=== PATIENT | male | born 1975 | race American Indian/Alaskan Native ===

== ENCOUNTER 2020-11-21 05:51 | Emergency (ER) | payer SELFPAY ==
[2020-11-21 06:12] VITALS: BP 117/79
[2020-11-21 07:15] LABS: Basophils # (Auto) 0.1 K/mm3 (0.0-0.1); Basophils % (Auto) 0.6 % (0.0-1.8); Eosinophils # (Auto) 0.1 K/mm3 (0.0-0.4); Eosinophils % (Auto) 1.1 % (0.0-4.3); Hematocrit 42.7 % (35.5-45.6); Hemoglobin 14.6 gm/dl (11.8-15.2); Lymphocytes # (Auto) 1.4 K/mm3 (1.2-5.4); Lymphocytes % (Auto) 14.3 % (13.4-35.0); Mean Corpuscular HGB Conc 34 % (32-34); Mean Corpuscular Volume 94 fl (84-94); Monocytes # (Auto) 0.7 K/mm3 (0.0-0.8); Monocytes % (Auto) 7.8 % (0.0-7.3); Platelet Count 217 K/mm3 (140-440); Red Blood Count 4.55 M/mm3 (3.65-5.03); Red Cell Distribution Width 14.5 % (13.2-15.2)
[2020-11-21 07:27] LABS: Alanine Aminotransferase 15 units/L (7-56); Albumin 4.4 g/dL (3.9-5); BUN/Creatinine Ratio 11; Blood Urea Nitrogen 9 mg/dL (9-20); Hemolysis Index 16
[2020-11-21 07:45] LABS: Bilirubin,Urine NEG (Negative); Blood,Urine NEG (Negative); Color,Urine Yellow (Yellow); Mucus,Urine 3+ /HPF
--- NOTE | 2020-11-21 08:01 | Emergency Department Report ---
ED Back Pain/Injury HPI - General Chief Complaint: Abdominal Pain Stated Complaint: LOWER BACK/ABD PAIN Time Seen by Provider: 11/21/20 07:26 Source: patient Limitations: No Limitations - History of Present Illness Initial Comments: The patient was evaluated in the emergency department for symptoms described in the history of present illness. He/she was evaluated in the context of the global COVID-19 pandemic, which necessitated consideration that the patient might be at risk for infection with the virus that causes COVID-19. Institutional protocols and algorithms that pertain to the evaluation of patients at risk for COVID-19 are in a state of rapid change based on inf ormation released by regulatory bodies including the CDC and federal and state organizations. These policies and algorithms were followed during the patient's care in the emergency department. Please note that these policies, procedures and recommendations changed on a rapid basis. 45-year-old -[place] male who is in no acute distress and nontoxic in appearance presents to the emergency room complaining of lower back pain for 2 weeks and lower abdominal pain for 3 days. Patient states that he has lower back pain that radiates down his legs and it feels like it is burning. Patient states it will go into his hips. Patient states what makes it worse is quick movements twisting and sitting for long period of time. He states nothing makes it better. Patient is taking nothing for his pain. Patient does not have a primary care provider. Patient denies any injury to his back. Patient states he has mild abdominal pain feels more like in his muscle 1 contractions abdomen muscles because his back tenses up. Patient denies any testicular pain or swelling no penile discharge. Patient denies any past medical history surgical history on her right shoulder and a hernia. Has no known drug allergies. MD Complaint: back pain - Related Data Previous Rx's Medication Instructions Recorded Last Taken Type Doxycycline Hyclate [Doxycycline 100 mg PO Q12HR 10 Days #20 tab 11/21/20 Unknown Rx Hyclate TAB] Ibuprofen [Motrin 600 MG tab] 600 mg PO Q8H PRN #21 tablet 11/21/20 Unknown Rx Allergies Allergy/AdvReac Type Severity Reaction Status Date / Time No Known Allergies Allergy Unverified 11/21/20 06:19 ED Review of Systems ROS: Stated complaint: LOWER BACK/ABD PAIN Other details as noted in HPI ED Past Medical Hx - Past Medical History Previous Medical History?: No - Surgical History Past Surgical History?: Yes Additional Surgical History: Hernia Repair. Right shoulder - Social History Smoking Status: Current Every Day Smoker Substance Use Type: None - Medications Home Medications: Home Medications Medication Instructions Recorded Confirmed Last Taken Type Doxycycline Hyclate [Doxycycline 100 mg PO Q12HR 10 Days #20 tab 11/21/20 Unknown Rx Hyclate TAB] Ibuprofen [Motrin 600 MG tab] 600 mg PO Q8H PRN #21 tablet 11/21/20 Unknown Rx ED Physical Exam - General Limitations: No Limitations General appearance: alert, in no apparent distress - Head Head exam: Present: atraumatic, normocephalic - Eye Eye exam: Present: normal appearance - ENT ENT exam: Present: mucous membranes moist, normal external ear exam - Neck Neck exam: Present: normal inspection, full ROM - Respiratory Respiratory exam: Absent: accessory muscle use - Cardiovascular Cardiovascular Exam: Present: regular rate - GI/Abdominal GI/Abdominal exam: Present: soft. Absent: distended, tenderness, guarding, rebound - Back Exam Back exam: Present: normal inspection - Expanded Back Exam Expanded Back exam: Sciatic Notch Tenderness: Left, Right, Positive Straight Leg Raise: Left, Right - Neurological Exam Neurological exam: Present: alert, oriented X3, normal gait - Psychiatric Psychiatric exam: Present: normal affect, normal mood - Skin Skin exam: Present: warm, dry, intact, normal color. Absent: rash ED Course Vital Signs 11/21/20 06:06 Temperature 98.0 F Pulse Rate 89 Respiratory 18 Rate Blood Pressure 117/79 O2 Sat by Pulse 95 Oximetry ED Medical Decision Making - Lab Data Result diagrams: 11/21/20 06:40 11/21/20 06:40 Laboratory Last Values WBC 9.6 K/mm3 (4.5-11.0) 11/21/20 06:40 RBC 4.55 M/mm3 (3.65-5.03) 11/21/20 06:40 Hgb 14.6 gm/dl (11.8-15.2) 11/21/20 06:40 Hct 42.7 % (35.5-45.6) 11/21/20 06:40 MCV 94 fl (84-94) 11/21/20 06:40 MCH 32 pg (28-32) 11/21/20 06:40 MCHC 34 % (32-34) 11/21/20 06:40 RDW 14.5 % (13.2-15.2) 11/21/20 06:40 Plt Count 217 K/mm3 (140-440) 11/21/20 06:40 Lymph % (Auto) 14.3 % (13.4-35.0) 11/21/20 06:40 [place] % (Auto) 7.8 % (0.0-7.3) H 11/21/20 06:40 Eos % (Auto) 1.1 % (0.0-4.3) 11/21/20 06:40 Baso % (Auto) 0.6 % (0.0-1.8) 11/21/20 06:40 Lymph # (Auto) 1.4 K/mm3 (1.2-5.4) 11/21/20 06:40 [place] # (Auto) 0.7 K/mm3 (0.0-0.8) 11/21/20 06:40 Eos # (Auto) 0.1 K/mm3 (0.0-0.4) 11/21/20 06:40 Baso # (Auto) 0.1 K/mm3 (0.0-0.1) 11/21/20 06:40 Seg Neutrophils % 76.2 % (40.0-70.0) H 11/21/20 06:40 Seg Neutrophils # 7.3 K/mm3 (1.8-7.7) 11/21/20 06:40 Sodium 139 mmol/L (137-145) 11/21/20 06:40 Potassium 4.6 mmol/L (3.6-5.0) 11/21/20 06:40 Chloride 103.0 mmol/L (98-107) 11/21/20 06:40 Carbon Dioxide 33 mmol/L (22-30) H 11/21/20 06:40 Anion Gap 8 mmol/L 11/21/20 06:40 BUN 9 mg/dL (9-20) 11/21/20 06:40 Creatinine 0.8 mg/dL (0.8-1.3) 11/21/20 06:40 Estimated GFR > 60 ml/min 11/21/20 06:40 BUN/Creatinine Ratio 11 % 11/21/20 06:40 Glucose 143 mg/dL (75-100) H 11/21/20 06:40 Calcium 9.0 mg/dL (8.4-10.2) 11/21/20 06:40 Total Bilirubin 0.40 mg/dL (0.1-1.2) 11/21/20 06:40 AST 17 units/L (5-40) 11/21/20 06:40 ALT 15 units/L (7-56) 11/21/20 06:40 Alkaline Phosphatase 55 units/L (35-129) 11/21/20 06:40 Total Protein 7.4 g/dL (6.3-8.2) 11/21/20 06:40 Albumin 4.4 g/dL (3.9-5) 11/21/20 06:40 Albumin/Globulin Ratio 1.5 % 11/21/20 06:40 Urine Color Yellow (Yellow) 11/21/20 Unknown Urine Turbidity Clear (Clear) 11/21/20 Unknown Urine pH 7.0 (5.0-7.0) 11/21/20 Unknown Ur Specific [place] 1.026 (1.003-1.030) 11/21/20 Unknown Urine Protein 30 mg/dl mg/dL (Negative) 11/21/20 Unknown Urine Glucose (UA) Neg mg/dL (Negative) 11/21/20 Unknown Urine Ketones Neg mg/dL (Negative) 11/21/20 Unknown Urine Blood Neg (Negative) 11/21/20 Unknown Urine Nitrite Neg (Negative) 11/21/20 Unknown Urine Bilirubin Neg (Negative) 11/21/20 Unknown Urine Urobilinogen 2.0 mg/dL (<2.0) 11/21/20 Unknown Ur Leukocyte Esterase Neg (Negative) 11/21/20 Unknown Urine WBC (Auto) 28.0 /HPF (0.0-6.0) H 11/21/20 Unknown Urine RBC (Auto) 19.0 /HPF (0.0-6.0) 11/21/20 Unknown U Epithel Cells (Auto) 1.0 /HPF (0-13.0) 11/21/20 Unknown Urine Mucus 3+ /HPF 11/21/20 Unknown - Medical Decision Making 45-year-old -[place] male who is in no acute distress and nontoxic in appearance presents to the emergency room complaining of lower back pain for 2 weeks and lower abdominal pain for 3 days. Patient states that he has lower back pain that radiates down his legs and it feels like it is burning. Patient states it will go into his hips. Patient states what makes it worse is quick movements twisting and sitting for long period of time. He states nothing makes it better. Patient is taking nothing for his pain. Patient does not have a primary care provider. Patient denies any injury to his back. Patient states he has mild abdominal pain feels more like in his muscle 1 contractions abdomen muscles because his back tenses up. Patient denies any testicular pain or swelling no penile discharge. Patient denies any past medical history surgical history on her right shoulder and a hernia. Has no known drug allergies. CBC CMP and urinalysis. CBC CMP is within normal limits urinalysis is pending. Patient is compliant and physical examination is more indicative of sciatica pain or lower back pain with with radiculopathy. Discussed with patient negative treatment for this is ibuprofen naproxen which is nonsteroidal anti- inflammatory medications and stretches. Urinalysis is positive for urinary tract infection we will place patient on doxycycline 100 mg p.o. twice daily for 10 days. Instructed patient to follow-up with a primary care provider. Critical care attestation.: If time is entered above; I have spent that time in minutes in the direct care of this critically ill patient, excluding procedure time. ED Disposition Clinical Impression: Back pain with radiculopathy, UTI (urinary tract infection) Disposition: 01 HOME / SELF CARE / HOMELESS Is pt being admited?: No Does the pt Need Aspirin: No Condition: Stable Instructions: Urinary Tract Infection, Adult, Radicular Pain, Sciatica, [id number] Additional Instructions: Complete antibiotics as prescribed. Take pain medication as needed follow-up with a primary care provider. Prescriptions: Doxycycline Hyclate [Doxycycline Hyclate TAB] 100 mg PO Q12HR 10 Days #20 tab Ibuprofen [Motrin 600 MG tab] 600 mg PO Q8H PRN #21 tablet PRN Reason: Pain Referrals: TISHA GROSS MD [Staff Physician] - 3-5 Days Forms: Work/School Release Form(ED)
== END 2020-11-21 08:39 | disposition home or self-care (01) ==
LOC: ED 05:51
DX: M54.16 Radiculopathy, lumbar region (principal); N39.0 Urinary tract infection, site not specified; F17.200 Nicotine dependence, unspecified, uncomplicated; Z98.890 Other specified postprocedural states; Z79.899 Other long term (current) drug therapy
CPT/HCPCS: 36415; 80053; 81001; 85025; 87086; 99283